=== PATIENT | female | born 1955 | race Caucasian/White ===

== ENCOUNTER → 2017-12-15 | Outpatient (CLI) | payer OTHER | LOC: M.RAD 16:14 | DX: R07.89 Other chest pain (principal) ==

== ENCOUNTER → 2018-12-02 | Outpatient (CLI) | payer OTHER | LOC: M.RAD 10:21 | DX: Z12.31 Encounter for screening mammogram for malignant neoplasm of breast (principal) ==

== ENCOUNTER → 2020-02-07 | Outpatient (CLI) | payer OTHER | LOC: M.RAD 14:56 | PROVIDERS: ATTEND Internal Medicine | DX: Z12.31 Encounter for screening mammogram for malignant neoplasm of breast (principal) ==

== ENCOUNTER → 2020-10-07 | Outpatient (CLI) | payer OTHER | LOC: M.MRI 08:02 | PROVIDERS: ATTEND Internal Medicine | DX: R41.3 Other amnesia (principal) ==

== ENCOUNTER → 2020-11-19 | Outpatient (CLI) | payer OTHER | LOC: M.LAB 11:59 | PROVIDERS: ATTEND Psychiatry & Neurology Neuromuscular Medicine | DX: F41.9 Anxiety disorder, unspecified (principal); R41.3 Other amnesia; H04.129 Dry eye syndrome of unspecified lacrimal gland ==

== ENCOUNTER → 2021-01-28 | Outpatient (CLI) | payer OTHER | LOC: M.ULTRA 15:49 | PROVIDERS: ATTEND Internal Medicine | DX: M71.21 Synovial cyst of popliteal space [Baker], right knee (principal); M25.461 Effusion, right knee; M79.661 Pain in right lower leg; M79.89 Other specified soft tissue disorders ==

== ENCOUNTER → 2021-02-11 | Outpatient (CLI) | payer OTHER | LOC: M.LAB 13:44 | PROVIDERS: ATTEND Anesthesiology | DX: Z01.812 Encounter for preprocedural laboratory examination (principal); Z20.822 Contact with and (suspected) exposure to COVID-19 ==

== ENCOUNTER → 2021-02-20 | Outpatient (CLI) | payer OTHER | LOC: M.NUC 11:40 | PROVIDERS: ATTEND Internal Medicine Gastroenterology | DX: R68.81 Early satiety (principal) ==

== ENCOUNTER → 2021-02-25 | Outpatient (CLI) | payer OTHER | LOC: M.MRI 11:23 | PROVIDERS: ATTEND Orthopaedic Surgery | DX: S83.281A Other tear of lateral meniscus, current injury, right knee, initial encounter (principal); S83.241A Other tear of medial meniscus, current injury, right knee, initial encounter; M22.41 Chondromalacia patellae, right knee; M23.91 Unspecified internal derangement of right knee; M71.21 Synovial cyst of popliteal space [Baker], right knee; X58.XXXA Exposure to other specified factors, initial encounter; Y93.89 Activity, other specified; Y92.89 Other specified places as the place of occurrence of the external cause; Y99.8 Other external cause status ==

== ENCOUNTER → 2021-05-13 | Outpatient (CLI) | payer OTHER | LOC: M.RAD 12:54 | PROVIDERS: ATTEND Internal Medicine | DX: Z12.31 Encounter for screening mammogram for malignant neoplasm of breast (principal) ==